=== PATIENT | female | born 1960 | race Caucasian/White ===

== ENCOUNTER 2020-08-09 11:29 | Emergency (ER) | payer MEDICARE, OTHER ==
[~2020-08-09] VITALS: Ht 154.9 cm; Wt 59.1 kg
[~2020-08-09 11:29] MED LIST: ACET-2151 PO; ACHD5005 PO; AMIT25TA9 PO; ASP81CT PO; ASP81TEC PO; CYCL10TA9 PO; DIAZ-345 PO; DICY20TA57 PO; GABA-488 PO; HYDR-2890 PO; HYOS0.1217 PO; IBUP-1780 PO; IBUP200T48 PO; LISI40TA PO; METH4TAB PO; OMEP20CA12 PO; ONDAN4ODT PO; OXYC1TAB87 PO
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
[2020-08-09 12:09] LABS: BASOPHILS # (AUTO) 0.1 10^3/uL (0.0-0.1); BASOPHILS % (AUTO) 0 % (0-10); EOSINOPHILS # (AUTO) 0.3 10^3/uL (0.0-0.3); EOSINOPHILS % (AUTO) 2 % (0-10); HEMATOCRIT 50 % (35-52); HEMOGLOBIN 16.9 G/DL (11.5-16.0); LYMPHOCYTES # (AUTO) 3.1 X 10^3 (1.0-4.0); LYMPHOCYTES % (AUTO) 27 % (12-44); MEAN CORPUSCULAR HEMOGLOBIN 30 PG (25-34); MEAN CORPUSCULAR HGB CONC 34 G/DL (32-36); MEAN CORPUSCULAR VOLUME 89 FL (80-99); MEAN PLATELET VOLUME 10.4 FL (7.4-10.4); MONOCYTES % (AUTO) 9 % (0-12); NEUTROPHILS # (AUTO) 7.2 X 10^3 (1.8-7.8); NEUTROPHILS % (AUTO) 62 % (42-75); PLATELET COUNT 254 10^3/uL (130-400); WHITE BLOOD COUNT 11.7 10^3/uL (4.3-11.0)
[2020-08-09 12:19] LABS: ALBUMIN 4.6 GM/DL (3.2-4.5)
[2020-08-09 12:20] LABS: CHLORIDE 106 MMOL/L (98-107); INR 0.9 (0.8-1.4); POTASSIUM 4.3 MMOL/L (3.6-5.0); PROTHROMBIN TIME PATIENT 12.7 SEC (12.2-14.7); SODIUM 141 MMOL/L (135-145)
[2020-08-09 12:21] LABS: CALCIUM 9.8 MG/DL (8.5-10.1)
[2020-08-09 12:22] LABS: GLUCOSE 94 MG/DL (70-105); TOTAL PROTEIN 7.8 GM/DL (6.4-8.2)
[2020-08-09 12:23] LABS: CARBON DIOXIDE 23 MMOL/L (21-32)
[2020-08-09 12:24] LABS: BILIRUBIN,TOTAL 0.5 MG/DL (0.1-1.0)
[2020-08-09 12:25] LABS: ALKALINE PHOSPHATASE 88 U/L (40-136)
[2020-08-09 12:26] LABS: CREATININE SERUM 0.74 MG/DL (0.60-1.30); GFR ESTIMATED > 60
[2020-08-09 12:27] LABS: BUN/CREATININE RATIO 8
[2020-08-09 12:28] LABS: ALANINE AMINOTRANSFERASE 11 U/L (0-55)
[2020-08-09 12:31] LABS: BILIRUBIN,URINE NEGATIVE (NEGATIVE); CLARITY,URINE CLEAR; COLOR,URINE YELLOW; GLUCOSE, URINE (UA) NEGATIVE (NEGATIVE); KETONES,URINE NEGATIVE (NEGATIVE); LEUKOCYTE ESTERASE ,URINE NEGATIVE (NEGATIVE); NITRITE,URINE NEGATIVE (NEGATIVE); PROTEIN,URINE NEGATIVE (NEGATIVE)
[2020-08-09 12:37] LABS: BACTERIA,URINE NEGATIVE /HPF; SQUAMOUS EPITHELIAL CELL,UR 0-2 /HPF
--- NOTE | 2020-08-09 13:37 | Diagnostic Imaging Report ---
CLINICAL HISTORY: Left hip pain. COMPARISON: None. TECHNIQUE: 2 views of the left hip. FINDINGS: No acute displaced fracture is seen in the left hip. Alignment of the left acetabulum and left femoral head is anatomic. Degenerative changes are present with joint space narrowing, marginal osteophytes, and subchondral sclerosis and cyst formation. The surrounding soft tissues are unremarkable. IMPRESSION: 1. No acute displaced fracture or dislocation in the left hip. Dictated by: Dictated on workstation # [id number]
[2020-08-09 13:46] VITALS: BP 183/86
== END 2020-08-09 13:46 | disposition home or self-care (01) ==
LOC: EDUNIT# 11:29 → ER 11:30
DX: S70.02XA Contusion of left hip, initial encounter (principal); S70.12XA Contusion of left thigh, initial encounter; I10 Essential (primary) hypertension; R40.2410 Glasgow coma scale score 13-15, unspecified time; F17.210 Nicotine dependence, cigarettes, uncomplicated; Z82.49 Family history of ischemic heart disease and other diseases of the circulatory system; Z88.5 Allergy status to narcotic agent; V89.2XXA Person injured in unspecified motor-vehicle accident, traffic, initial encounter
CPT/HCPCS: 36415; 73502; 80053; 81000; 85025; 85610